=== PATIENT | female | born 1995 | race African-American/Black ===

== ENCOUNTER 2017-05-05 13:50 | Emergency (ER) | payer OTHER ==
[~2017-05-05 13:50] MED LIST: ABILIFY PO; CELEXA PO; CLONIDINE PO; CONCERTA PO; FOCALIN XR PO; IBUPROFEN600 MG; MOTRIN600 M1 PO; NAPROXEN250 MG PO; PREDNISONE PO; PROZAC PO; RISPERIDONE; VYVANSE60 MG; ZYRTEC-D TABLE1 EACH PO
[2017-05-05 14:38] LABS: URINE SOURCE CLEAN CATCH
[2017-05-05 14:41] LABS: URINE APPEARANCE CLEAR; URINE BILIRUBIN NEG (NEG); URINE BLOOD NEG (NEG); URINE COLOR YELLOW; URINE GLUCOSE NEG (NORM); URINE KETONE NEG (NEG); URINE LEUKOCYTE ESTERASE NEG (NEG); URINE NITRATE NEG (NEG); URINE PH 7.5 (5-8); URINE PROTEIN NEG (NEG); URINE SPECIFIC GRAVITY 1.015 (1.003-1.035)
[2017-05-05 14:43] LABS: MICRO INDICATED? NO
== END 2017-05-05 15:24 | disposition home or self-care (01) ==
LOC: SED 13:50
PROVIDERS: Emergency Medicine
DX: M54.5 Low back pain (principal); R30.0 Dysuria
CPT/HCPCS: 81003; 84703; 99283